=== PATIENT | female | born 1980 | race Caucasian/White ===

== ENCOUNTER → 2017-05-24 | Outpatient (REF) | payer BC | LOC: M LAB REF 18:17 | DX: E04.1 Nontoxic single thyroid nodule (principal) | CPT/HCPCS: 88173 ==

== ENCOUNTER → 2019-03-17 | Outpatient (REF) | payer BC | LOC: M SFHCLERA 10:50 | PROVIDERS: ATTEND Nurse Practitioner Family | DX: J02.9 Acute pharyngitis, unspecified (principal) ==

== ENCOUNTER 2019-06-02 08:06 | Day surgery (SDC) | payer BC ==
[~2019-06-02] VITALS: Ht 154.9 cm; Wt 63.5 kg
[~2019-06-02 08:06] MED LIST: AMIT25TA PO; CETI5SOL3 PO; NS 1,000 ML IV ONE; OMEP-218 PO; PROBCAP14 PO; VALA500T5 PO
[2019-06-02] MEDS ORDERED: LIDOCAINE 2% MDV 20 ML VIAL As Ordered ONE (08:07)
[2019-06-02] MEDS ORDERED: propofoL 200 MG/20 ML VIAL As Ordered ONE ×2 (08:07→09:33)
[2019-06-02] MEDS ORDERED: fentaNYL 100 MCG/2 ML INJECTION (J3010) As Ordered ONE (08:08)
[2019-06-02] MEDS ORDERED: ATIV1TAB10 PO (08:32)
--- NOTE | 2019-06-02 09:20 | ROOR ---
Patient Name: Lakshmi Fleming Procedure Date: 06/02/2019 9:02 AM Date of : 1980 Age: 38 Room: [facility] Gender: Female Note Status: Finalized Procedure: Upper Endoscopy + Biopsies Indications: Heartburn, Exclusion of Davies's esophagus Providers: Derrek Shaw MD Referring MD: Erin Villalba Requesting Provider: Medicines: Monitored Anesthesia Care Complications: No immediate complications. Procedure: Pre-Anesthesia Assessment: - The heart rate, respiratory rate, oxygen saturations, blood pressure, adequacy of pulmonary ventilation, and response to care were monitored throughout the procedure. The Endoscope was introduced through the mouth, and advanced to the second part of duodenum. The upper GI endoscopy was accomplished without difficulty. The patient tolerated the procedure well. Findings: The Z-line was variable and was found 38 cm from the incisors. Multiple biopsies were obtained with cold forceps for evaluation to rule out Davies's Esophagus randomly at the gastroesophageal junction. A small hiatal hernia was present. No other significant abnormalities were identified in a careful examination of the stomach. The exam of the duodenum was otherwise normal. Impression: - Z-line variable, 38 cm from the incisors. - Small hiatal hernia. - Multiple biopsies were obtained at the gastroesophageal junction. - The examination was otherwise normal. Recommendation: - Patient has a contact number available for emergencies. The signs and symptoms of potential delayed complications were discussed with the patient. Return to normal activities tomorrow. Written discharge instructions were provided to the patient. - High fiber diet. - Discharge patient to home. - Follow an antireflux regimen. - Continue present medications. - Await pathology results. - Telephone GI clinic for pathology results in 1 week. - Return to referring physician. - The findings and recommendations were discussed with the patient's family. Derrek Shaw MD Derrek Shaw MD 06/02/2019 9:19:33 AM Electronically signed by Derrek Shaw MD Number of Addenda: 0 Note Initiated On: 06/02/2019 9:02 AM Estimated Blood Loss: Estimated blood loss: none.
--- NOTE | 2019-06-02 09:38 | ROOR ---
Patient Name: Lakshmi Fleming Procedure Date: 06/02/2019 9:03 AM Date of : 1980 Age: 38 Room: [facility] Gender: Female Note Status: Finalized Procedure: Total Colonoscopy to Cecum + ileoscopy + Bx Indications: Change in bowel habits Providers: Derrek Shaw MD Referring MD: Erin Villalba Requesting Provider: Medicines: Monitored Anesthesia Care Complications: No immediate complications. Procedure: Pre-Anesthesia Assessment: - The heart rate, respiratory rate, oxygen saturations, blood pressure, adequacy of pulmonary ventilation, and response to care were monitored throughout the procedure. The Colonoscope was introduced through the anus and advanced to 3 cm into the ileum. The colonoscopy was performed without difficulty. The patient tolerated the procedure well. The quality of the bowel preparation was excellent. Findings: The perianal and digital rectal examinations were normal. No other significant abnormalities were identified in a careful examination of the remainder of the colon. The terminal ileum appeared normal. Biopsies for histology were taken with a cold forceps from the ascending colon, transverse colon, descending colon and rectosigmoid colon for evaluation of microscopic colitis. Impression: - The examined portion of the ileum was normal. - Biopsies were taken with a cold forceps from the ascending colon, transverse colon, descending colon and rectosigmoid colon for evaluation of microscopic colitis. - The exam was otherwise normal to the cecum. Recommendation: - Patient has a contact number available for emergencies. The signs and symptoms of potential delayed complications were discussed with the patient. Return to normal activities tomorrow. Written discharge instructions were provided to the patient. - High fiber diet. - Discharge patient to home. - Continue present medications. - Await pathology results. - Telephone GI clinic for pathology results in 1 week. - Repeat colonoscopy at age 50 for screening purposes. - Return to referring physician. - The findings and recommendations were discussed with the patient's family. Derrek Shaw MD Derrek Shaw MD 06/02/2019 9:38:25 AM Electronically signed by Derrek Shaw MD Number of Addenda: 0 Note Initiated On: 06/02/2019 9:03 AM Estimated Blood Loss: Estimated blood loss: none.
[2019-06-02 10:00] VITALS: BP 122/80
== END 2019-06-02 10:08 | disposition home or self-care (01) ==
LOC: M OPP 08:06
PROVIDERS: ATTEND Internal Medicine Gastroenterology
DX: R19.4 Change in bowel habit (principal); K22.8 Other specified diseases of esophagus; K44.9 Diaphragmatic hernia without obstruction or gangrene; R12 Heartburn; K21.9 Gastro-esophageal reflux disease without esophagitis; Z79.899 Other long term (current) drug therapy; Z88.0 Allergy status to penicillin; Z87.891 Personal history of nicotine dependence
CPT/HCPCS: 43239; 45380; 88305; J3010